=== PATIENT | female | born 1985 | race Caucasian/White ===

== ENCOUNTER → 2020-11-24 | Outpatient (REF) | payer BC | LOC: M PLALAB 13:38 | PROVIDERS: ATTEND Obstetrics & Gynecology | DX: Z3A.09 9 weeks gestation of pregnancy (principal); Z53.9 Procedure and treatment not carried out, unspecified reason ==

== ENCOUNTER → 2020-12-04 | Outpatient (REF) | payer BC ==
[2020-12-04 13:41] LABS: HEMATOCRIT 37.8 % (36.0-47.0); HEMOGLOBIN 12.7 g/dl (12.0-15.5); MEAN CORPUSCULAR HEMOGLOBIN 31.7 pg (27.0-33.0); MEAN CORPUSCULAR HGB CONC 33.6 g/dl (32.0-36.5); MEAN CORPUSCULAR VOLUME 94.3 fl (80.0-96.0); PLATELET COUNT, AUTOMATED 258 10^3/uL (150-450); RED BLOOD COUNT 4.01 10^6/uL (4.00-5.40); WHITE BLOOD COUNT 9.9 10^3/uL (4.0-10.0)
[2020-12-04 14:21] LABS: GLUCOSE CHALLENGE TEST 1 HOUR 96 MG/DL (LESS THAN 140)
[2020-12-04 15:12] LABS: HEPATITIS C VIRUS ABY INDEX < 0.0 INDEX (<0.8)
[2020-12-04 15:26] LABS: CHLAMYDIA DNA AMPLIFICATION NEGATIVE (NEGATIVE); GC DNA AMPLIFICATION NEGATIVE (NEGATIVE)
[2020-12-05 10:48] LABS: HIV 1&2 SCREEN CENTAUR NEGATIVE (NEGATIVE)
== END ==
LOC: M PLALAB 11:00
PROVIDERS: ATTEND Obstetrics & Gynecology
DX: Z34.81 Encounter for supervision of other normal pregnancy, first trimester (principal); Z36.89 Encounter for other specified antenatal screening; Z3A.09 9 weeks gestation of pregnancy

== ENCOUNTER → 2020-12-23 | Outpatient (REF) | payer BC | LOC: M PLALAB 13:05 | PROVIDERS: ATTEND Obstetrics & Gynecology | DX: Z36.89 Encounter for other specified antenatal screening (principal); Z3A.13 13 weeks gestation of pregnancy ==

== ENCOUNTER → 2021-02-03 | Outpatient (CLI) | payer BC ==
--- NOTE | 2021-02-03 18:38 | REP ---
INDICATION: 13 WEEKS GESTATION OF . COMPARISON: None. TECHNIQUE: Real-time sonographic evaluation of the gravid uterus performed. FINDINGS: Estimated gestational age is19 weeks 2 days, EDC 06/28/2021. Today's measurements indicate appropriate growth. Presentation: Transverse, head maternal right side. Placenta anterior and left, grade 0, without evidence of placenta previa. heart rate is recorded at 137 beats per minute. Amniotic fluid is subjectively normal. Closed cervical length is measured at 5.2 cm. Biometry chart: BPD: 47 mm, 20 weeks 1 days, 73rd percentile. HC: 166 mm, 19 weeks 2 days, 50th percentile AC: 145 mm, 19 weeks 6 days, 61st percentile Femur length: 30 mm, 19 weeks 1 days, 46th percentile HC to AC ratio: 1.15, normal range 1.06-1.25. Estimated weight: 297g anatomy: Cranium: Grossly normal Lateral Ventricles/Choroid Plexus: Grossly normal Posterior Fossa/Cerebellum: Grossly normal Nose/lips/profile: Grossly normal Four chamber heart: Grossly normal Right ventricular outflow tract: Grossly normal Left ventricular outflow tract: Grossly normal Left-sided stomach: Grossly normal Kidneys: Grossly normal Bladder: Grossly normal Cord Insertion: Grossly normal 3 vessel cord: Grossly normal Spine: Grossly normal IMPRESSION: Viable single intrauterine gestation as above. <Electronically signed by Monty Gastelum > 02/03/21 [id number]
== END ==
LOC: M RAD 15:27
PROVIDERS: ATTEND Obstetrics & Gynecology
DX: Z36.89 Encounter for other specified antenatal screening (principal); Z3A.19 19 weeks gestation of pregnancy; O32.2XX0 Maternal care for transverse and oblique lie, not applicable or unspecified

== ENCOUNTER → 2021-03-02 | Outpatient (REF) | payer BC | LOC: M PLALAB 15:24 | PROVIDERS: ATTEND Obstetrics & Gynecology | DX: Z36.89 Encounter for other specified antenatal screening (principal); Z3A.23 23 weeks gestation of pregnancy ==

== ENCOUNTER → 2021-03-31 | Outpatient (REF) | payer BC ==
[2021-03-31 17:39] LABS: HEMATOCRIT 30.6 % (36.0-47.0); HEMOGLOBIN 10.3 g/dl (12.0-15.5); MEAN CORPUSCULAR HEMOGLOBIN 31.4 pg (27.0-33.0); MEAN CORPUSCULAR HGB CONC 33.7 g/dl (32.0-36.5); MEAN CORPUSCULAR VOLUME 93.3 fl (80.0-96.0); PLATELET COUNT, AUTOMATED 234 10^3/uL (150-450); RED BLOOD COUNT 3.28 10^6/uL (4.00-5.40); WHITE BLOOD COUNT 11.3 10^3/uL (4.0-10.0)
== END ==
LOC: M SFHCWAGY 17:18
PROVIDERS: ATTEND Obstetrics & Gynecology
DX: Z36.89 Encounter for other specified antenatal screening (principal); Z3A.23 23 weeks gestation of pregnancy

== ENCOUNTER → 2021-04-01 | Outpatient (REF) | payer BC | LOC: M PLALAB 08:55 | PROVIDERS: ATTEND Obstetrics & Gynecology | DX: O99.810 Abnormal glucose complicating pregnancy (principal); Z3A.00 Weeks of gestation of pregnancy not specified ==

== ENCOUNTER → 2021-04-09 | Outpatient (CLI) | payer BC | LOC: M LAB 08:20 | PROVIDERS: ATTEND Obstetrics & Gynecology | DX: O99.810 Abnormal glucose complicating pregnancy (principal) ==

== ENCOUNTER → 2021-05-26 | Outpatient (REF) | payer BC | LOC: M SFHCWAGY 13:13 | PROVIDERS: ATTEND Advanced Practice Midwife | DX: O24.419 Gestational diabetes mellitus in pregnancy, unspecified control (principal) ==

== ENCOUNTER → 2021-06-05 | Outpatient (CLI) | payer BC ==
--- NOTE | 2021-06-07 07:05 | REP ---
INDICATION: GESTATIONAL DIABETES MELLITUS IN , UNSP CONTROL COMPARISON: 02/03/2021 TECHNIQUE: Transabdominal obstetrical ultrasound with color Doppler evaluation. FINDINGS: Examination demonstrates a single live intrauterine in cephalic presentation. motion is identified by technologist. Placenta is noted anterior and grade 1 without evidence for placenta previa or abruption. Amniotic fluid volume is normal. Cervix measures 4.2 cm in length and appears closed.. Selected gestational age: 36 weeks 5 days with TIFFANIE is 06/28/2021. Gestational age by current measurements 37 weeks 0 days with TIFFANIE 06/26/2021. FHR equals 120 beats per minute. BPD: 9.1 cm at 36 weeks 6 days HC: 33.3 cm at 38 weeks 0 days AC: 33.2 cm at 37 weeks 0 days FL: 7.2 cm at 36 weeks 4 days HL: 6.3 cm at 36 weeks 3 days HC/AC: 1.00 Estimated weight 3096 grams (63rdpercentile). DARLIN: 22.5 cm IMPRESSION: Single live advanced gestation in cephalic presentation demonstrating appropriate estimated weight and growth. <Electronically signed by Anthony Navarrete > 06/07/21 0701
== END ==
LOC: M WHC 10:59
PROVIDERS: ATTEND Advanced Practice Midwife
DX: O24.419 Gestational diabetes mellitus in pregnancy, unspecified control (principal); Z3A.36 36 weeks gestation of pregnancy

== ENCOUNTER 2021-06-21 11:49 | Inpatient (IN) | payer BC ==
[2021-06-21] VITALS (8 sets, daily range): BP systolic 101–116; BP diastolic 64–80
[~2021-06-21] VITALS: Ht 149.9 cm; Wt 83.4 kg
[2021-06-21] MEDS ORDERED: TUMS750C22 PO (12:24)
[2021-06-21] MEDS ORDERED: FERR325T3 PO (12:24)
[2021-06-21] MEDS ORDERED: PRENTAB9 PO (12:24)
[2021-06-21] MEDS ORDERED: ACET-683 PO (12:24)
[2021-06-21] MEDS ORDERED: HOME MED LIST COMPLETE! XX SCH (12:25)
[2021-06-21] MEDS ORDERED: LACTATED RINGER'S 1000 ML IV STA (13:03)
[2021-06-21] MEDS: LR 1,000 ML IV SCH ×2 (13:05→21:19)
[2021-06-21] MEDS ORDERED: TRANEXAMIC ACID INJection 1,000 MG in NS 100 ML IV PRN (13:05)
[2021-06-21] MEDS ORDERED: METHYLERGONOVINE MALEATE 0.2 MG/ML VIAL (J2210) IM PRN (13:05)
[2021-06-21] MEDS ORDERED: LIDOCAINE 1% MDV 20ML VIAL INFIL PRN (13:05)
[2021-06-21] MEDS ORDERED: CARBOPROST TROMETHAMINE 250 MCG/ML AMP IM PRN (13:05)
[2021-06-21] MEDS ORDERED: OXYTOCIN DRIP 30 UNITS in IV 1 EA IV PRN (13:05)
[2021-06-21 14:10] LABS: HEMATOCRIT 34.4 % (36.0-47.0); HEMOGLOBIN 11.8 g/dl (12.0-15.5); MEAN CORPUSCULAR HEMOGLOBIN 31.7 pg (27.0-33.0); MEAN CORPUSCULAR HGB CONC 34.3 g/dl (32.0-36.5); MEAN CORPUSCULAR VOLUME 92.5 fl (80.0-96.0); PLATELET COUNT, AUTOMATED 206 10^3/uL (150-450); RED BLOOD COUNT 3.72 10^6/uL (4.00-5.40); WHITE BLOOD COUNT 9.7 10^3/uL (4.0-10.0)
[2021-06-21] MEDS: miSOPROStol 50MCG 1/2 TABLET SL SCH ×3 (14:13→21:15)
[2021-06-22] VITALS (57 sets, daily range): BP systolic 86–137; BP diastolic 53–100
[2021-06-22] MEDS ORDERED: diphenhydrAMINE 25MG CAP PO ONE ×2 (01:45→02:00)
[2021-06-22] MEDS: CALCIUM CARBONATE 500 MG CHEW U/D PO PRN ×2 (02:10→20:28)
[2021-06-22] MEDS: miSOPROStol 50MCG 1/2 TABLET SL SCH (02:11)
[2021-06-22] MEDS ORDERED: OXYTOCIN DRIP 30 UNITS in IV 1 EA IV SCH (09:20)
[2021-06-22] MEDS ORDERED: OXYTOCIN 30 UNITS IN 0.9% NaCl 500ML IV BAG (J2590) As Ordered ONE (09:24)
[2021-06-22] MEDS ORDERED: REFRIGERATOR IV KEYS XX PRN (14:14)
[2021-06-22] MEDS ORDERED: ONDANSETRON 4MG/2ML VIAL IV PRN (14:14)
[2021-06-22] MEDS ORDERED: diphenhydrAMINE 50MG/ML VIAL (J1200) IV PRN (14:14)
[2021-06-22] MEDS ORDERED: LACTATED RINGER'S 1000 ML IV PRN (14:14)
[2021-06-22] MEDS ORDERED: NALOXONE INJ 0.4MG/1ML VIAL (J2310 PER 1MG) IV PRN (14:14)
[2021-06-22] MEDS ORDERED: EPIDURAL/PCA KEYS XX PRN (14:14)
[2021-06-22] MEDS ORDERED: EPIDURAL COMMENT XX SCH (14:14)
[2021-06-22] MEDS ORDERED: FENTANYL 2MCG/ML ROPIVACAINE 0.2% IN 0.9% NACL 100ML IVBAG As Ordered ONE (14:15)
[2021-06-22] MEDS: FENTANYL/ROPIVACAINE/NACL BAG 100 ML EPIDURAL SCH (14:48)
[2021-06-22] MEDS: ePHEDrine SULFATE 25 MG/5 ML(5MG/ML) SYRINGE IV PRN ×3 (15:09→16:34)
[2021-06-22] MEDS: LR 1,000 ML IV SCH (18:30)
[2021-06-23] VITALS (9 sets, daily range): BP systolic 93–130; BP diastolic 52–67
[2021-06-23] MEDS: FENTANYL/ROPIVACAINE/NACL BAG 100 ML EPIDURAL SCH (00:17)
[2021-06-23 01:08] LABS: CORD GAS ABE A -9.5; CORD GAS HCO3 A 17.1 MEQ/L; CORD GAS O2 SAT A 56.1 %; CORD GAS PCO2 A 39.7 mmHg; CORD GAS PH A 7.251 UNITS; CORD GAS SBC A 16.1 MEQ/L; CORD GAS TCO2 A 18.3 MEQ/L
[2021-06-23 01:11] LABS: CORD GAS ABE V -9.4; CORD GAS HCO3 V 15.5 MEQ/L; CORD GAS O2 SAT V 75.3 %; CORD GAS PCO2 V 31.2 mmHg; CORD GAS PH V 7.313 UNITS; CORD GAS PO2 V 34.9 mmHg; CORD GAS SBC V 16.6 MEQ/L; CORD GAS TCO2 V 16.4 MEQ/L
[2021-06-23] MEDS ORDERED: DOCUSATE SODIUM 100MG CAPSULE PO PRN (01:20)
[2021-06-23] MEDS ORDERED: MOM 30ML SUSPENSION UDC PO PRN (01:20)
[2021-06-23] MEDS ORDERED: ANUSOL HC CREAM 30GM TOP PRN (01:20)
[2021-06-23] MEDS ORDERED: MEASLES,MUMPS,RUBELLA VACCINE INJ (MMR-II) (90707) SC SCH (01:20)
[2021-06-23] MEDS ORDERED: RHOGAM 300 MCG (1500 IU) INJ (J2790) IM SCH (01:20)
[2021-06-23] MEDS ORDERED: METHYLERGONOVINE MALEATE 0.2 MG TAB PO PRN (01:20)
[2021-06-23] MEDS ORDERED: OXYTOCIN DRIP 30 UNITS in IV 1 EA IV SCH (01:20)
[2021-06-23] MEDS ORDERED: ACETAMINOPHEN TAB 650MG DOSE (2X325MG) PO PRN (01:20)
[2021-06-23] MEDS ORDERED: IBUPROFEN 600MG TAB PO PRN (01:20)
[2021-06-23] MEDS ORDERED: DIBUCAINE 1% OINTMENT 30GM TOP PRN (01:20)
[2021-06-23] MEDS: IBUPROFEN 800 MG TAB PO PRN ×2 (01:50→19:29)
[2021-06-23] MEDS: ACETAMINOPHEN 500 MG TAB PO PRN ×2 (06:45→16:30)
[2021-06-23] MEDS: PRENATAL VITAMINS CHEWABLE TABLET PO SCH (09:03)
[2021-06-24 05:55] VITALS: BP 103/69
[2021-06-24] MEDS: ACETAMINOPHEN 500 MG TAB PO PRN (07:21)
[2021-06-24] MEDS: PRENATAL VITAMINS CHEWABLE TABLET PO SCH (08:19)
[2021-06-24 17:48] VITALS: BP 113/56
[2021-06-25] MEDS: ACETAMINOPHEN 500 MG TAB PO PRN (00:15)
[2021-06-25] MEDS: IBUPROFEN 800 MG TAB PO PRN (04:39)
[2021-06-25 06:00] VITALS: BP 110/67
[2021-06-25] MEDS: PRENATAL VITAMINS CHEWABLE TABLET PO SCH (08:27)
== END 2021-06-25 13:00 | disposition home or self-care (01) | DRG 560 ==
LOC: M LDI 11:49 → M OBS 06-23 03:25
PROVIDERS: ADMIT Obstetrics & Gynecology; ATTEND Obstetrics & Gynecology
PROC: 3E033VJ Introduction of Other Hormone into Peripheral Vein, Percutaneous Approach (ICD-10-PCS; 2021-06-21)
PROC: 10D07Z6 Extraction of Products of Conception, Vacuum, Via Natural or Artificial Opening (ICD-10-PCS; principal; 2021-06-23)
PROC: 0KQM0ZZ Repair Perineum Muscle, Open Approach (ICD-10-PCS; 2021-06-23)
DX: O24.429 Gestational diabetes mellitus in childbirth, unspecified control (principal); O09.523 Supervision of elderly multigravida, third trimester; O75.81 Maternal exhaustion complicating labor and delivery; Z37.0 Single live birth; Z3A.39 39 weeks gestation of pregnancy; O70.1 Second degree perineal laceration during delivery

== ENCOUNTER → 2021-10-14 | Outpatient (REF) | payer BC, MEDICAID ==
[~2021-10-14] MED LIST: ACET-683 PO; FERR325T3 PO; PRENTAB9 PO; TUMS750C22 PO
== END ==
LOC: M SFHCWAGY 17:22
PROVIDERS: ATTEND Obstetrics & Gynecology
DX: Z12.4 Encounter for screening for malignant neoplasm of cervix (principal); N84.1 Polyp of cervix uteri
CPT/HCPCS: 87624; 88305; G0123

== ENCOUNTER → 2021-11-24 | Outpatient (REF) | payer MEDICAID ==
[2021-11-24 16:17] LABS: BASO % 0.5 % (0.0-1.0); EOS # 0.4 10^3/uL (0.0-0.5); EOS % 5.1 % (0.0-3.0); HEMATOCRIT 38.3 % (36.0-47.0); HEMOGLOBIN 13.1 g/dl (12.0-15.5); LYMPH # 1.9 10^3/uL (1.5-5.0); LYMPH % 24.9 % (24.0-44.0); MEAN CORPUSCULAR HEMOGLOBIN 31.8 pg (27.0-33.0); MEAN CORPUSCULAR HGB CONC 34.2 g/dl (32.0-36.5); MONO # 0.6 10^3/uL (0.0-0.8); MONO % 7.7 % (2.0-8.0); NEUTROPHILS # 4.6 10^3/uL (1.5-8.5); NEUTROPHILS % 61.7 % (36.0-66.0); PLATELET COUNT, AUTOMATED 257 10^3/uL (150-450); RED BLOOD COUNT 4.12 10^6/uL (4.00-5.40); WHITE BLOOD COUNT 7.4 10^3/uL (4.0-10.0)
[2021-11-24 16:33] LABS: ALBUMIN 3.7 GM/DL (3.2-5.2); ALT/SGPT 35 U/L (12-78); BILIRUBIN,TOTAL 0.6 MG/DL (0.2-1.0); BLOOD UREA NITROGEN 14 MG/DL (7-18); CALCIUM LEVEL 8.8 MG/DL (8.5-10.1); CARBON DIOXIDE LEVEL 26 MEQ/L (21-32); CHLORIDE LEVEL 106 MEQ/L (98-107); CHOLESTEROL LEVEL 169 MG/DL (<200); CHOLESTEROL RISK RATIO 2.283 (<5); CREATININE FOR GFR 0.64 MG/DL (0.55-1.30); FREE T4 0.92 NG/DL (0.76-1.46); GLOMERULAR FILTRATION RATE > 60.0 (>60); GLUCOSE, FASTING 70 MG/DL (70-100); HDL CHOLESTEROL 74 MG/DL (>40); LDL CHOLESTEROL 81 MG/DL (<100); NON-HDL-C 95 MG/DL; POTASSIUM SERUM 4.2 MEQ/L (3.5-5.1); SODIUM LEVEL 140 MEQ/L (136-145); TRIGLYCERIDES LEVEL 70 MG/DL (<150)
[2021-11-24 16:45] LABS: FOLATE 18.2 NG/ML; VITAMIN B12 LEVEL 586 PG/ML
== END ==
LOC: M SFHCCAPE 09:42
PROVIDERS: ATTEND Physician Assistant
DX: Z00.00 Encounter for general adult medical examination without abnormal findings (principal)

== ENCOUNTER → 2022-10-28 | Outpatient (REF) | payer MEDICAID, OTHER ==
[2022-10-28 19:13] LABS: BASO # 0.1 10^3/uL (0.0-0.2); BASO % 0.5 % (0.0-1.0); EOS # 0.7 10^3/uL (0.0-0.5); EOS % 6.9 % (0.0-3.0); HEMOGLOBIN 13.3 g/dl (12.0-15.5); LYMPH # 2.3 10^3/uL (1.5-5.0); LYMPH % 22.5 % (24.0-44.0); MEAN CORPUSCULAR HGB CONC 33.3 g/dl (32.0-36.5); MEAN CORPUSCULAR VOLUME 93.2 fl (80.0-96.0); MONO # 0.8 10^3/uL (0.0-0.8); MONO % 7.6 % (2.0-8.0); NEUTROPHILS # 6.5 10^3/uL (1.5-8.5); NEUTROPHILS % 62.1 % (36.0-66.0); PLATELET COUNT, AUTOMATED 316 10^3/uL (150-450); RED BLOOD COUNT 4.29 10^6/uL (4.00-5.40); WHITE BLOOD COUNT 10.4 10^3/uL (4.0-10.0)
[2022-10-28 19:35] LABS: HCG, SERUM QUANTITATIVE 309.3 MIU/ML (<4.2)
[2022-10-28 19:38] LABS: ALKALINE PHOSPHATASE 91 U/L (46-116); ALT/SGPT 23 U/L (7.0-40); AST/SGOT 21 U/L (<34); BILIRUBIN,TOTAL 0.6 MG/DL (0.3-1.2); BLOOD UREA NITROGEN 13 MG/DL (9-23); CALCIUM LEVEL 9.4 MG/DL (8.5-10.1); CARBON DIOXIDE LEVEL 25 MMOL/L (20-31); CHLORIDE LEVEL 102 MMOL/L (98-107); CREATININE FOR GFR 0.55 MG/DL (0.55-1.30); GLOMERULAR FILTRATION RATE > 60.0 (>60); GLUCOSE, FASTING 74 MG/DL (60-100); POTASSIUM SERUM 4.2 MMOL/L (3.5-5.1); SODIUM LEVEL 136 MMOL/L (136-145); TOTAL PROTEIN 7.2 G/DL (5.7-8.2)
[2022-10-28 19:39] LABS: THYROID STIMULATING HORMONE 1.658 uIU/ML (0.55-4.78)
[2022-10-28 19:40] LABS: FREE T4 0.99 NG/DL (0.89-1.76)
== END ==
LOC: M SFHCCAPE 13:33
PROVIDERS: ATTEND Physician Assistant
DX: O46.90 Antepartum hemorrhage, unspecified, unspecified trimester (principal); R21 Rash and other nonspecific skin eruption

== ENCOUNTER → 2022-11-01 | Outpatient (REF) | payer MEDICAID, OTHER ==
[2022-11-01 19:26] LABS: HEMATOCRIT 38.6 % (36.0-47.0); HEMOGLOBIN 12.6 g/dl (12.0-15.5); MEAN CORPUSCULAR HGB CONC 32.6 g/dl (32.0-36.5); MEAN CORPUSCULAR VOLUME 94.8 fl (80.0-96.0); PLATELET COUNT, AUTOMATED 284 10^3/uL (150-450); RED BLOOD COUNT 4.07 10^6/uL (4.00-5.40); WHITE BLOOD COUNT 9.6 10^3/uL (4.0-10.0)
== END ==
LOC: M SFHCCAPE 07:56
PROVIDERS: ATTEND Physician Assistant
DX: O46.90 Antepartum hemorrhage, unspecified, unspecified trimester (principal)

== ENCOUNTER → 2022-12-10 | Outpatient (CLI) | payer OTHER | LOC: M PLALAB 13:49 | PROVIDERS: ATTEND Obstetrics & Gynecology | DX: O09.521 Supervision of elderly multigravida, first trimester (principal) ==

== ENCOUNTER → 2022-12-24 | Outpatient (CLI) | payer OTHER ==
[2022-12-24 15:27] LABS: HEMATOCRIT 36.6 % (36.0-47.0); HEMOGLOBIN 12.5 g/dl (12.0-15.5); MEAN CORPUSCULAR HEMOGLOBIN 31.6 pg (27.0-33.0); MEAN CORPUSCULAR HGB CONC 34.2 g/dl (32.0-36.5); MEAN CORPUSCULAR VOLUME 92.7 fl (80.0-96.0); PLATELET COUNT, AUTOMATED 264 10^3/uL (150-450); RED BLOOD COUNT 3.95 10^6/uL (4.00-5.40); WHITE BLOOD COUNT 11.4 10^3/uL (4.0-10.0)
[2022-12-24 15:53] LABS: GLUCOSE CHALLENGE TEST 1 HOUR 158 MG/DL (LESS THAN 140)
[2022-12-24 16:25] LABS: HIV 1&2 SCREEN NEGATIVE (NEGATIVE)
[2022-12-24 16:33] LABS: HEPATITIS C VIRUS ABY INDEX < 0.0 INDEX (<0.8)
[2022-12-24 16:48] LABS: GC DNA AMPLIFICATION NEGATIVE (NEGATIVE)
== END ==
LOC: M PLALAB 11:48
PROVIDERS: ATTEND Obstetrics & Gynecology
DX: O09.521 Supervision of elderly multigravida, first trimester (principal); Z36.89 Encounter for other specified antenatal screening; Z3A.00 Weeks of gestation of pregnancy not specified

== ENCOUNTER → 2022-12-31 | Outpatient (CLI) | payer OTHER | LOC: M LAB 07:36 | PROVIDERS: ATTEND Obstetrics & Gynecology | DX: R73.09 Other abnormal glucose (principal) ==

== ENCOUNTER → 2023-01-04 | Outpatient (CLI) | payer OTHER, MEDICAID | LOC: M WHC 14:44 | PROVIDERS: ATTEND Specialist | DX: Z34.82 Encounter for supervision of other normal pregnancy, second trimester (principal); Z53.9 Procedure and treatment not carried out, unspecified reason ==

== ENCOUNTER → 2023-02-01 | Outpatient (CLI) | payer OTHER | LOC: M WHC 14:14 | PROVIDERS: ATTEND Specialist | DX: Z34.82 Encounter for supervision of other normal pregnancy, second trimester (principal); Z3A.19 19 weeks gestation of pregnancy ==

== ENCOUNTER → 2023-03-30 | Outpatient (CLI) | payer OTHER ==
[2023-03-30 14:04] LABS: HEMATOCRIT 35.2 % (36.0-47.0); HEMOGLOBIN 11.8 g/dl (12.0-15.5); MEAN CORPUSCULAR HEMOGLOBIN 31.9 pg (27.0-33.0); MEAN CORPUSCULAR HGB CONC 33.5 g/dl (32.0-36.5); MEAN CORPUSCULAR VOLUME 95.1 fl (80.0-96.0); PLATELET COUNT, AUTOMATED 216 10^3/uL (150-450); WHITE BLOOD COUNT 8.9 10^3/uL (4.0-10.0)
[2023-03-30 16:00] LABS: GC DNA AMPLIFICATION NEGATIVE (NEGATIVE)
== END ==
LOC: M PLALAB 09:46
PROVIDERS: ATTEND Obstetrics & Gynecology
DX: O24.419 Gestational diabetes mellitus in pregnancy, unspecified control (principal); Z3A.00 Weeks of gestation of pregnancy not specified

== ENCOUNTER → 2023-05-30 | Outpatient (REF) | payer OTHER, MEDICAID | LOC: M PLALAB 14:38 | PROVIDERS: ATTEND Obstetrics & Gynecology | DX: Z34.80 Encounter for supervision of other normal pregnancy, unspecified trimester (principal) ==

== ENCOUNTER → 2023-06-07 | Outpatient (CLI) | payer OTHER | LOC: M WHC 12:43 | PROVIDERS: ATTEND Obstetrics & Gynecology | DX: O24.419 Gestational diabetes mellitus in pregnancy, unspecified control (principal); Z3A.37 37 weeks gestation of pregnancy ==

== ENCOUNTER → 2024-04-18 | Outpatient (REF) | payer OTHER, MEDICAID ==
[~2024-04-18] MED LIST changes: +COLA100C5 PO; +IBUP80TA PO; +PERCOCET PO
[2024-04-18 19:12] LABS: ALKALINE PHOSPHATASE 123 U/L (46-116); ALT/SGPT 34 U/L (7.0-40); AST/SGOT 26 U/L (<34); BILIRUBIN,TOTAL 0.5 MG/DL (0.3-1.2); BLOOD UREA NITROGEN 14 MG/DL (9-23); CALCIUM LEVEL 9.8 MG/DL (8.5-10.1); CARBON DIOXIDE LEVEL 27 MMOL/L (20-31); CHLORIDE LEVEL 105 MMOL/L (98-107); GLOMERULAR FILTRATION RATE > 60.0 (>60); GLUCOSE, FASTING 81 MG/DL (60-100); POTASSIUM SERUM 4.1 MMOL/L (3.5-5.1); SODIUM LEVEL 137 MMOL/L (136-145); TOTAL PROTEIN 7.4 G/DL (5.7-8.2)
[2024-04-18 19:13] LABS: FREE T4 1.06 NG/DL (0.89-1.76); THYROID STIMULATING HORMONE 1.483 uIU/ML (0.55-4.78)
[2024-04-18 19:22] LABS: BASO # 0.1 10^3/uL (0.0-0.2); BASO % 0.6 % (0.0-1.0); EOS # 0.5 10^3/uL (0.0-0.5); EOS % 5.4 % (0.0-3.0); HEMATOCRIT 40.6 % (36.0-47.0); HEMOGLOBIN 13.5 g/dl (12.0-15.5); LYMPH # 1.9 10^3/uL (1.5-5.0); LYMPH % 22.4 % (24.0-44.0); MEAN CORPUSCULAR HEMOGLOBIN 31.4 pg (27.0-33.0); MEAN CORPUSCULAR HGB CONC 33.3 g/dl (32.0-36.5); MEAN CORPUSCULAR VOLUME 94.4 fl (80.0-96.0); MONO # 0.8 10^3/uL (0.0-0.8); MONO % 9.8 % (2.0-8.0); PLATELET COUNT, AUTOMATED 263 10^3/uL (150-450); WHITE BLOOD COUNT 8.3 10^3/uL (4.0-10.0)
[2024-04-18 19:28] LABS: HEMOGLOBIN A1c 5.2 % (4.0-6.0)
== END ==
LOC: M SFHCCAPE 11:36
PROVIDERS: ATTEND Physician Assistant Medical
DX: Z00.00 Encounter for general adult medical examination without abnormal findings (principal); F41.1 Generalized anxiety disorder; F33.9 Major depressive disorder, recurrent, unspecified; Z86.32 Personal history of gestational diabetes